=== PATIENT | female | born 1995 | race Caucasian/White ===

== ENCOUNTER → 2020-08-10 13:01 | Outpatient (BNVA) | payer OTHER, SELFPAY | PROVIDERS: PCP Family Medicine; Visit Provider Psychiatry & Neurology Neurology | DX: F33.2 Major depressive disorder, recurrent severe without psychotic features (principal); F41.1 Generalized anxiety disorder | CPT/HCPCS: 90791 ==

== ENCOUNTER → 2020-08-15 15:45 | Outpatient (BNVA) | payer OTHER, SELFPAY | PROVIDERS: PCP Family Medicine; Visit Provider Internal Medicine | DX: G89.29 Other chronic pain (principal); R10.9 Unspecified abdominal pain; Z01.812 Encounter for preprocedural laboratory examination; K52.9 Noninfective gastroenteritis and colitis, unspecified | CPT/HCPCS: 80053; 82784; 83516; 83550; 84443; 85025; 85651 ==

== ENCOUNTER → 2020-09-04 12:44 | Outpatient (BNVA) | payer OTHER, SELFPAY | PROVIDERS: PCP Family Medicine; Visit Provider Internal Medicine | DX: Z01.812 Encounter for preprocedural laboratory examination (principal); G89.29 Other chronic pain; R10.9 Unspecified abdominal pain; Z20.822 Contact with and (suspected) exposure to COVID-19 | CPT/HCPCS: 87635 ==

== ENCOUNTER 2020-09-07 07:47 | Day surgery (SDC) | payer OTHER, SELFPAY ==
[2020-09-05 15:07] VITALS: BMI 34.9
--- NOTE | 2020-09-07 08:07 | ANES.PREANE2 ---
Pre-Anesthetic Assessment Pre-Anesthetic Assessment: Height/Weight: Height 1.65 m Weight 95.254 kg Preop Diagnosis: t Proposed Procedure: Operation Date: 09/07/20 09:30 Proposed Procedures p EGD 27620 [id number] r10.9 j89.29(Not Applicable) - Michael Newman MD s Colonoscopy(Not Applicable) - Michael Newman MD Was Beta Sruthi taken within 24 hours: N/A Was Clonidine taken within 24 hours: N/A Social: Social History: No alcohol and No tobacco Exam: Pre-Anes Outpt Exam: alert, oriented x 3, clear to auscultation bilaterally and regular rate & rhythm Airway: Submandibular: WNL Cervical ROM: WNL MP: 2 Dentition: Full History/ROS: No significant history except as noted Neuropsych: Neuropsych: Anxiety Anesthetic Plan: ASA status: 2 Anesthesia: MAC Risk of > 500 ml blood loss (7ml/kg in children): No PFSH Anesthesia PFSH: Social History (Updated 08/15/20 @ 13:04 by HERBER Wynne) Smoking and tobacco status: never smoked Alcohol intake: current Alcohol intake frequency: holidays/special occasions only Adopted: Yes Marital status: Single service: No History of recent travel: No Female Reproductive History: Date of last menstrual period: 08/06/20 Data Anesthesia Cardiac Studies: No Data to Display
[2020-09-07 08:32] VITALS: BP 132/74; PULSE 87; RESP 16; TEMP 36.3; O2SAT 98
[2020-09-07] MEDS: sodium chloride 0.9% 1,000 ML 30 ML IV (08:55)
--- NOTE | 2020-09-07 09:13 | P.HP_ITS ---
Same Day Surgery H&P Indication for Procedure/HPI DATE OF PROCEDURE: September 07, 2020 CHIEF COMPLAINT/INDICATIONFOR SURGICAL PROCEDURE: Abdominal plain and hematochezia PREOP DIAGNOSIS: t PLANNED PROCEDRUE: Operation Date: 09/07/20 09:30 Proposed Procedures p EGD [id number] r10.9 j89.29(Not Applicable) - Michael Newman MD s Colonoscopy(Not Applicable) - Michael Newman MD Medications/Allergies* Home Medications Medication Instructions Recorded Confirmed Type bupropion HCl 150 mg tablet,12 hr 150 mg PO DAILY 08/07/20 09/07/20 History sustained-release escitalopram oxalate 20 mg tablet 20 mg PO DAILY 08/07/20 09/07/20 History Allergies/Adverse Reactions Allergy/AdvReac Type Severity Reaction Status Date / Time No Known Allergies Allergy Verified 09/05/20 15:06 Pertinent History/Comorbid Conditions* Social History Smoking and tobacco status: never smoked Alcohol intake: current Alcohol intake frequency: holidays/special occasions only Adopted: Yes Marital status: Single service: No History of recent travel: No Pertinent Exam Findings alert, oriented x 3, clear to auscultation bilaterally, regular rate & rhythm, operative site marked and procedure specific exam findings Recommendations Surgery/Procedure today Coding Level of Care Code Acute Paperboard Machine Operator for Thierno Hernandez
[2020-09-07 10:22] VITALS: BP 123/79; PULSE 82; RESP 18; TEMP 36.1; O2SAT 97
[2020-09-07 10:22] LABS: OR HCG Qualitative Urine Negative (Negative)
--- NOTE | 2020-09-07 10:24 | ANE.PACU2 ---
Inpatient post-anesthesia follow up: Airway intact: Yes Vital signs: Temperature 97.3 F Pulse Rate 87 Respiratory Rate 16 Blood Pressure 132/74 Pulse Oximetry 98 Oxygen Delivery Me thod Room Air Oxygen Flow Rate Fraction of Inspir ed Oxygen Hydration adequate: Yes Nausea and vomiting: No Pain level: 1 Mental status: Baseline
[2020-09-07 10:43] VITALS: BP 119/83; PULSE 87; RESP 18; O2SAT 100
[2020-09-09 09:29] LABS: H. Pylori / CLO Test Negative
== END 2020-09-07 11:01 | disposition home or self-care (01) ==
PROVIDERS: PCP Family Medicine; Visit Provider Internal Medicine
PROC: 0DJ08ZZ Inspection of Upper Intestinal Tract, Via Natural or Artificial Opening Endoscopic (ICD-10-PCS; CPT 43235; principal; 2020-09-07 09:30)
PROC: 0DJD8ZZ Inspection of Lower Intestinal Tract, Via Natural or Artificial Opening Endoscopic (ICD-10-PCS; CPT 45378; 2020-09-07 09:30)
DX: K92.1 Melena (principal); K29.70 Gastritis, unspecified, without bleeding; F41.9 Anxiety disorder, unspecified; D12.4 Benign neoplasm of descending colon; K52.9 Noninfective gastroenteritis and colitis, unspecified
CPT/HCPCS: 43239; 45380; 45385; 84703; 87077; 88305; 96360; 96361; J2704; J7030

== ENCOUNTER → 2020-09-10 08:24 | Outpatient (BNVA) | payer OTHER, SELFPAY | PROVIDERS: PCP Family Medicine; Visit Provider Psychiatry & Neurology Psychiatry | DX: F43.12 Post-traumatic stress disorder, chronic (principal); F33.1 Major depressive disorder, recurrent, moderate; F41.1 Generalized anxiety disorder; F60.5 Obsessive-compulsive personality disorder | CPT/HCPCS: 99204 ==

== ENCOUNTER → 2020-11-09 09:23 | Outpatient (BNVA) | payer OTHER, SELFPAY | PROVIDERS: PCP Internal Medicine; Visit Provider Nurse Practitioner Women's Health | DX: N92.6 Irregular menstruation, unspecified (principal); Z12.4 Encounter for screening for malignant neoplasm of cervix; G43.109 Migraine with aura, not intractable, without status migrainosus | CPT/HCPCS: 84146; 84439; 84443; 84702; 88175 ==

== ENCOUNTER 2020-11-26 06:50 | Outpatient (CLI) | payer OTHER, SELFPAY ==
--- NOTE | 2020-11-26 07:15 | MR_ITS ---
WS: [id number] MRI LUMBAR SPINE NONCONTRAST TECHNIQUE: Sagittal T1, T2 and STIR imaging. Axial T1 and T2 imaging. CLINICAL INFORMATION: Fairly abrupt lower extremity numbness with fairly severe COMPARISON: None. FINDINGS: Mild lumbar curve. No acute compression. No high-grade central canal stenosis. L1-L2: Normal. L2-L3: Normal. L3-L4: No significant disc bulging. Mild facet arthropathy. Spinal canal and foramen are patent. L4-L5: No significant disc bulging. Mild facet arthropathy. Spinal canal and foramen are patent. L5-S1: No significant disc bulging. Mild facet arthropathy. Spinal canal and foramen are patent. Visualized pelvic bony structures: Normal. Paravertebral soft tissues: Normal. MR/MR lumbar spine wo con* [id number] IMPRESSION: 1. Normal lumbar alignment. No acute compression. No high-grade central canal stenosis. 2. No significant disc bulging. Spinal canal and foramen are patent. 3. Mild facet arthropathy L3-L5.
== END 2020-11-26 06:51 | disposition home or self-care (01) ==
LOC: RADSHAW 06:54
PROVIDERS: PCP Internal Medicine; Visit Provider Internal Medicine
DX: R20.0 Anesthesia of skin (principal); M54.5 Low back pain; M47.816 Spondylosis without myelopathy or radiculopathy, lumbar region
CPT/HCPCS: 72148

== ENCOUNTER → 2020-11-27 15:20 | Outpatient (BNVA) | payer OTHER, SELFPAY | PROVIDERS: PCP Internal Medicine; Visit Provider Internal Medicine | DX: R20.0 Anesthesia of skin (principal) | CPT/HCPCS: 82607; 82746; 83036 ==

== ENCOUNTER → 2020-12-03 14:42 | Outpatient (BNVA) | payer OTHER, SELFPAY | PROVIDERS: PCP Internal Medicine; Visit Provider Nurse Practitioner Women's Health | DX: N92.6 Irregular menstruation, unspecified (principal); N83.02 Follicular cyst of left ovary; N83.01 Follicular cyst of right ovary | CPT/HCPCS: 76830 ==

== ENCOUNTER → 2021-03-27 15:22 | Outpatient (BNVA) | payer OTHER, SELFPAY | PROVIDERS: PCP Internal Medicine; Visit Provider Nurse Practitioner Women's Health | DX: R79.89 Other specified abnormal findings of blood chemistry (principal) | CPT/HCPCS: 84146 ==

== ENCOUNTER → 2021-12-13 10:50 | Outpatient (BNVA) | payer OTHER, SELFPAY | PROVIDERS: PCP Internal Medicine; Visit Provider Nurse Practitioner Women's Health | DX: N93.9 Abnormal uterine and vaginal bleeding, unspecified (principal); E28.2 Polycystic ovarian syndrome; R10.2 Pelvic and perineal pain | CPT/HCPCS: 36415; 85025 ==

== ENCOUNTER → 2022-01-09 14:54 | Outpatient (BNVA) | payer OTHER, SELFPAY | PROVIDERS: PCP Internal Medicine; Visit Provider Obstetrics & Gynecology | DX: N93.9 Abnormal uterine and vaginal bleeding, unspecified (principal); R10.2 Pelvic and perineal pain | CPT/HCPCS: 76830 ==

== ENCOUNTER 2022-04-16 07:42 | Day surgery (SDC) | payer OTHER, SELFPAY ==
[2022-04-11 09:30] VITALS: BMI 34.9
--- NOTE | 2022-04-11 09:59 | P.ANESASSM_ITS ---
Pre-Anesthetic Assessment Height/Weight: Height 1.65 m Weight 95.254 kg Preop Diagnosis: t Operation Date: 04/16/22 09:20 Proposed Procedures p Diagnostic laparoscopy 48617,R10.2(Not Applicable) - Sathya Trevizo MD Familial anesthetic complications: PONV Was Beta Sruthi taken within 24 hours: N/A Was Clonidine taken within 24 hours: N/A Social No alcohol and No tobacco Exam alert, oriented x 3, clear to auscultation bilaterally and regular rate & rhythm Airway Submandibular: within normal limits Cervical ROM: within normal limits Mallampati: Class II Dentition: full Metabolic PCOS Neuropsych Anxiety, Depression and Headache Anesthetic Plan ASA status: 2 Anesthesia: General (TIVA?) Other: PONV Medications/Allergies Home Medications Medication Instructions Recorded Confirmed Last Taken Type buspirone 10 mg tablet 10 mg PO TID #60 tabs 12/18/21 04/11/22 03/19/22 Rx hydroxyzine HCl 10 mg tablet 10 mg PO Q8H PRN itching #30 tabs 12/18/21 04/11/22 03/19/22 Rx venlafaxine 75 mg capsule,extended 75 mg PO DAILY #30 caps 01/13/22 04/11/22 04/11/22 Rx release 24 hr amitriptyline 25 mg tablet 25 mg PO DAILY #30 tabs 04/09/22 04/11/22 Unknown Rx Allergies Allergy/AdvReac Type Severity Reaction Status Date / Time No Known Allergies Allergy Verified 04/11/22 09:28 [facility] Anesthesia Medical History Generalized anxiety disorder Irritable bowel syndrome (IBS) Fluctuating constipation and diarrhea Migraine with aura No pertinent past medical history Neg hx: HTN, DM, thyroid, DVT/PE PCP: Dr. Newman Post-traumatic stress disorder, chronic Surgical History History of repair of ACL Family History Grandmother Cancer breast cancer-- MGM dx 40's Cervical cancer-- MGM CAD (coronary artery disease) MGM Grandfather Diabetes MGF Hypertension MGM Stroke Maternal Other Adopted Denies family history of Hyperlipidemia Breast cancer Uterine cancer Thyroid disease Social History Smoking and tobacco status: never smoked Female Reproductive History Date of last menstrual period: 11/28/21 Spontaneous abortions: No Data Anesthesia Cardiac Studies: No Data to Display
[2022-04-16] VITALS (12 sets, daily range): BP systolic 101–142; BP diastolic 63–88; PULSE 69–128; RESP 17–24; TEMP 36.5–36.8; O2SAT 93–100
--- NOTE | 2022-04-16 08:04 | P.ANESUD_ITS ---
Pre-Anesthetic Update Pre-Anesthetic Assessment: Date of Surgery/Procedure: 04/16/22 Preop Melissa gnosis: t Proposed Procedure: Operation Date: 04/16/22 09:20 Proposed Procedures p Diagnostic laparoscopy 09881,R10.2(Not Applicable) - Sathya Trevizo MD Any changes to Pre-Anesthetic Assessment?: No Exam: Pre-Anes Outpt Exam: alert, oriented x 3, clear to auscultation bilaterally and regular rate & rhythm Cardiac Studies: No Data to Display
[2022-04-16] MEDS: scopolamine 1.5 Patch 1 PATCH TRANSDERMA (08:34)
[2022-04-16] MEDS: sodium chloride 0.9% 1,000 ML 30 ML IV (08:34)
[2022-04-16 08:44] LABS: Add Urine Microscopic? NO; Charge for UA Resulting for Rev
[2022-04-16 08:47] LABS: Bilirubin Urine Neg (Negative); Blood Urine Neg (Negative); Glucose Urine UA Norm (Normal); Ketones Urine Negative (Negative); Leukocyte Esterase Urine Negative (Negative); Nitrate Urine Negative (Negative); Protein Urine Neg (Negative); Specific Gravity, Urine 1.015 (1.005-1.030); Urine Appearance Clear (CLEAR); Urine Color Yellow (Yellow); Urobilinogen Urine Norm (Negative); pH Urine 7 (5-7)
[2022-04-16 08:56] LABS: OR HCG Qualitative Urine Negative (Negative)
[2022-04-16 09:01] LABS: Basophils % 0.3 %; Eosinophils % 0.6 %; Hematocrit 41.8 % (37.0-47.0); Hemoglobin 14.1 g/dL (11.5-15.3); Lymphocytes # 2.4 10^3/uL (0.8-4.8); Lymphocytes % 33.6 %; Mean Corpuscular HGB Conc 33.7 g/dL (30.0-36.0); Mean Corpuscular Hemoglobin 29.5 pg (28.0-34.0); Mean Corpuscular Volume 87.4 fl (81-99); Mean Platelet Volume 9.8 fL (7.4-10.4); Monocytes # 0.4 10^3/uL (0.2-0.9); Monocytes % 5.5 %; Neutrophils # 4.32 10^3/uL (1.8-7.7); Neutrophils % 59.7 %; Nucleated Red Blood Cells % 0 %; Platelet Count 296 10^3/cmm (130-400); Red Blood Count 4.78 10^6/uL (4.1-5.3); Red Cell Distribution Width 11.8 % (12.1-15.1); White Blood Count 7.2 10^3/uL (4.0-10.0)
[2022-04-16 09:13] LABS: Alanine Aminotransferase 19 U/L (0-33); Albumin Level 4.4 g/dL (3.5-5.2); Alkaline Phosphatase 112 U/L (35-105); Anion Gap 13.8 (5-19); Aspartate Amino Transferase 19 U/L (0-32); Blood Urea Nitrogen 9 mg/dL (6-20); Calcium 9.5 mg/dL (8.5-10.5); Carbon Dioxide 24 mmol/L (22-29); Chloride 101 mmol/L (98-107); Globulin 3.7 g/dL (1.3-4.6); Glucose 101 mg/dL (65-115); Osmolality Calculated 279 mOsm/kg (285-295); Potassium 3.8 mmol/L (3.5-5.1); Sodium 135 mmol/L (136-145); Total Bilirubin 0.2 mg/dL (0.15-1.2); Total Protein 8.1 g/dL (6.6-8.7)
[2022-04-16] MEDS: diphenhydrAMINE 50 mg/mL SDV 1mL 12.5 MG IVP (09:32)
--- NOTE | 2022-04-16 09:50 | W.PM.OPSUD ---
Surgery/Procedure H&P Update DATE OF PROCEDURE: April 16, 2022 DATE H&P PERFORMED: 04/11/22 H&P UPDATE INFORMATION: I have reviewed H&P completed within last 30 days, I have examined patient prior to procedure and No changes to prior documentation PREOP DIAGNOSIS: t PLANNED PROCEDURE: Operation Date: 04/16/22 09:20 Proposed Procedures p Diagnostic laparoscopy 50763,R10.2(Not Applicable) - Sathya Trevizo MD
[2022-04-16] MEDS: ceFAZolin 2,000 MG in sodium chloride 0.9% (plus) 50 ML 100 MG IV (09:58)
--- NOTE | 2022-04-16 10:56 | PM.OP ---
Operative Report Date of procedure: April 16, 2022 Pre-op diagnosis: Preop Diagnosis pelvic pain Post-op diagnosis: Same as above Post-op findings: Normal uterus, normal left and right fallopian tube and ovaries. Right ovary with follicular cyst Procedure done: Diagnostic laparoscopy Surgeon: Sathya Trevizo MD Estimated blood loss (mL): 1 IV fluids (mL): 900 Urine output (mL): 400 Findings: Normal pelvic organs no AVIONICS SYSTEM ENGINEER pathology noted Procedure: After informed consent, the patient was taken to the operating room where general anesthesia was administered. The patient was examined under anesthesia and found to have a normal uterus with normal adnexa. She was placed in the dorsal lithotomy position and prepped and draped in sterile fashion. Pre-Procedure Time-Out verifying the correct patient identity, correct procedure verified with consent, correct site and side, correct patient position, availability of correct implants and any special equipment or requirements was performed and acknowledge by the OR team. A weighted speculum was placed in the vagina, and the anterior lip of cervix was grasped with the single toothed tenaculum. A uterine manipulator was advanced into the endocervical. Tenaculum was removed after uterine manipulator was secured. The speculum was removed from the vagina. An intraumbilical incision was made with a scalpel. While tenting up on the abdomen, a Verres needle with sleeve was admitted into the intra-abdominal cavity. A saline drop test was performed and noted to be within normal limits. Pneumoperitoneum was attained with 4 liters of carbon dioxide. The Verres needle was removed. A 5 mm trocar and sleeve were admitted into the abdomen and laparoscopic confirmation of location was achieved, A second incision was made 3 cm above the symphysis pubis, and a 5 mm trocar and sleeve were admitted into the abdomen under direct, laparoscopic visualization without complication. A survey revealed normal abdominal anatomy. The pelvic survey shows normal uterus, left and right adnexa. A 5 mm blunt probe was advanced through the second trocar sleeve, and light manipulation of ovaries and uterus. The right ovary had a follicular cyst. To assess the posterior aspects probe was advanced and light manipulation was performed. Carbon dioxide was allowed to escape from the abdomen. The instruments were removed, and skin cover with a bandage. The instruments were removed from the vagina, and excellent hemostasis was noted. The patient tolerated the procedure well, and sponge, lap and needle count were correct times two. The patient taken to the recovery room in good condition.
[2022-04-16] MEDS: midazolam 1 mg/mL INJ 2 mL 2 MG IVP (11:23)
[2022-04-16] MEDS: HYDROcodone-acetaminophen 5-325 mg Tablet 1 TAB PO (12:08)
[2022-04-16] MEDS: ondansetron 2 mg/ML SDV 2 mL 4 MG IVP (12:30)
--- NOTE | 2022-04-16 16:35 | ANE.PACU2 ---
Inpatient post-anesthesia follow up: Airway intact: Yes Vital signs: Temperature 98.2 F Pulse Rate 92 Respiratory Rate 18 Blood Pressure 101/63 Pulse Oximetry 95 Oxygen Delivery Me thod Room Air Oxygen Flow Rate 10 Fraction of Inspir ed Oxygen Hydration adequate: Yes Nausea and vomiting: No Pain level: 1 Mental status: Baseline
== END 2022-04-16 13:39 | disposition home or self-care (01) ==
PROVIDERS: PCP Family Medicine; Visit Provider Obstetrics & Gynecology
PROC: (CPT 49320; principal; 2022-04-16 09:20)
DX: R10.2 Pelvic and perineal pain (principal); E28.2 Polycystic ovarian syndrome
CPT/HCPCS: 49320; 36415; 80053; 81003; 81025; 84703; 85025; 86850; 86900; J0690; J1100; J1170; J1200; J2250; J2405; J2704; J2710; J3010; J3490; J7030

== ENCOUNTER → 2022-07-30 09:45 | Outpatient (BNVA) | payer OTHER, SELFPAY | PROVIDERS: PCP Family Medicine; Visit Provider Nurse Practitioner Women's Health | DX: R30.0 Dysuria (principal) | CPT/HCPCS: 84315; 87077; 87086; 87184 ==

== ENCOUNTER → 2022-08-12 08:00 | Outpatient (BNVA) | payer OTHER, SELFPAY | PROVIDERS: PCP Family Medicine; Visit Provider Internal Medicine | DX: E28.2 Polycystic ovarian syndrome (principal); E16.2 Hypoglycemia, unspecified; L68.0 Hirsutism | CPT/HCPCS: 80053; 82533; 82627; 83036; 85025 ==

== ENCOUNTER 2022-08-25 09:18 | Outpatient (CLI) | payer OTHER, SELFPAY ==
[2022-08-25 11:30] LABS: Testosterone Total 50.1 ng/dL (8.4-48.1)
== END 2022-08-25 09:19 | disposition home or self-care (01) ==
LOC: LAB 09:22
PROVIDERS: PCP Family Medicine; Visit Provider Internal Medicine
DX: E16.2 Hypoglycemia, unspecified (principal); E28.2 Polycystic ovarian syndrome; L68.0 Hirsutism
CPT/HCPCS: 36415; 84403

== ENCOUNTER → 2022-09-11 09:11 | Outpatient (BNVA) | payer OTHER, SELFPAY | PROVIDERS: PCP Family Medicine; Visit Provider Internal Medicine | DX: E28.2 Polycystic ovarian syndrome (principal); E16.2 Hypoglycemia, unspecified; L68.0 Hirsutism | CPT/HCPCS: 36415; 80061; 83036 ==